=== PATIENT | female | born 1990 | race Two or more races ===

== ENCOUNTER 2023-01-19 06:49 | Outpatient (REF) | payer OTHER, SELFPAY ==
[2023-01-19 09:21] LABS: MANUAL DIFF FLAG NO
[2023-01-19 09:49] LABS: Basophils Percent Auto 0.4 % (0-2); Eosinophils Absolute Auto 0.1 X10*3/uL (0.0-0.4); Eosinophils Percent Auto 1.2 % (0-4); Hematocrit 39.6 % (37.0-47.0); Hemoglobin 13.1 g/dl (12.0-16.0); Imm Gran Abs Auto 0.01 X10*3/uL (0.00-0.03); Imm Gran Pct Auto 0.2 % (0.0-0.4); Lymphocytes Percent Auto 37.5 % (20-40); Mean Corpuscular HGB Conc 33.1 g/dl (31.0-35.0); Mean Corpuscular Hemoglobin 32.3 pg (27.0-33.0); Mean Corpuscular Volume 97.5 fL (80.0-98.0); Mean Platelet Volume 10.6 fL (9.4-12.3); Monocytes Absolute Auto 0.5 X10*3/uL (0.1-1.2); Monocytes Percent Auto 10.2 % (2-11); Neutrophils Absolute Auto 2.6 x10*3/uL (2.0-8.3); Neutrophils Percent Auto 50.5 % (45-73); Platelet Count 207 X10*3/uL (160-400); Red Blood Count 4.06 X10*6/uL (4.20-5.50); Red Cell Distribution Width 11.9 % (11.0-16.0); White Blood Count 5.2 X10*3/uL (4.8-10.8)
[2023-01-19 10:11] LABS: Estimated Average Glucose 74 mg/dL; Hemoglobin A1c % 4.2 %
[2023-01-19 10:46] LABS: Alanine Aminotransferase 9 U/L (0-31); Albumin Level 4.3 g/dL (3.5-5.0); Alkaline Phosphatase 50 U/L (39-117); Anion Gap 11 (12-20); Aspartate Amino Transferase 14 U/L (5-31); Bilirubin Total 0.9 mg/dL (0.0-1.0); Blood Urea Nitrogen 10 mg/dL (9-16); Calcium 9.6 mg/dL (8.4-10.2); Carbon Dioxide 26 mmol/L (22-29); Chloride 108 mmol/L (96-108); Estimated Glomerular Filt Rate > 60; Glucose Random 107 mg/dL (60-115); Iron 81 mcg/dL (30-160); Magnesium 2.1 mg/dL (1.6-2.6); Percent Iron Saturation 24 % (15-50); Sodium 141 mmol/L (135-145); Total Iron Binding Capacity 332 mcg/dL (228-428); Total Protein 7.5 g/dL (6.5-8.0); Unsaturated Iron Binding 251 ug/dL
[2023-01-19 10:54] LABS: Ferritin 40 ng/mL (10-122); Free T4 (Free Thyroxine) 0.88 ng/dL (0.71-1.85); Thyroid Stimulating Hormone 1.25 uIU/mL (0.32-4.0)
== END 2023-01-19 06:50 | disposition home or self-care (01) ==
LOC: HO.LAB 06:49
PROVIDERS: Visit Provider Internal Medicine
DX: I10 Essential (primary) hypertension (principal); E83.42 Hypomagnesemia; D50.9 Iron deficiency anemia, unspecified; E03.9 Hypothyroidism, unspecified; R73.09 Other abnormal glucose
CPT/HCPCS: 36415; 80053; 82728; 83036; 83540; 83735; 84439; 84443; 85025

== ENCOUNTER 2023-05-11 13:33 | Outpatient (REF) | payer OTHER, SELFPAY ==
--- NOTE | ~2023-05-11 | XR_ITS ---
EXAMINATION: XR CHEST CLINICAL INFORMATION: Cough. Question hemoptysis COMPARISON: None available. TECHNIQUE: 2 views of the chest were obtained. FINDINGS: There is a faint region of increased density overlying the inferior scapula in the peripheral left lung which may be related to atelectasis or pneumonitis and appears somewhat more prominent than would be expected for overlying structures. Heart normal size. No evidence of pulmonary edema. No pneumothorax or pleural effusion. XR/XR chest 2V IMPRESSION: Small focus of density within the left peripheral upper lung.
== END 2023-05-11 13:34 | disposition home or self-care (01) ==
LOC: HO.XRAY 13:33
PROVIDERS: PCP Internal Medicine; Visit Provider Radiology Diagnostic Radiology
DX: R05.9 Cough, unspecified (principal); R04.2 Hemoptysis
CPT/HCPCS: 71046

== ENCOUNTER 2023-05-19 13:00 | Outpatient (REF) | payer OTHER, SELFPAY ==
--- NOTE | ~2023-05-19 | XR_ITS ---
EXAMINATION: XR CHEST CLINICAL INFORMATION: Shortness of breath COMPARISON: Previous chest x-ray 05/11/2023 TECHNIQUE: 2 views of the chest were obtained. FINDINGS: The cardiac and mediastinal contours are normal. The lungs are clear. No pleural effusion or pneumothorax. Normal bony structures. XR/XR chest 2V IMPRESSION: Unremarkable examination.
== END 2023-05-19 13:01 | disposition home or self-care (01) ==
LOC: HO.XRAY 13:00
PROVIDERS: PCP Internal Medicine; Visit Provider Physician Assistant Medical
DX: R06.02 Shortness of breath (principal)
CPT/HCPCS: 71046

== ENCOUNTER 2024-05-25 07:50 | Outpatient (REF) | payer OTHER, SELFPAY ==
--- NOTE | ~2024-05-25 | CT_ITS ---
EXAMINATION: CT ABDOMEN AND PELVIS WITH CONTRAST CLINICAL INFORMATION: Constipation, abdominal pain, diarrhea. COMPARISON: No prior. TECHNIQUE: Multidetector volumetric images were obtained from the superior aspect of the liver through the pubic symphysis following administration 85 mL of Omnipaque 350 intravenous contrast. Sagittal and coronal reformatted images were obtained on the technologist's workstation. Oral contrast: No This CT examination was performed using dose optimization techniques as appropriate, variously including the following: *Automated exposure control *Adjustment of mA and/or kV according to patient size (this includes techniques or standardized protocols for targeted exams where dose is matched to indication/reason for exam; i.e. extremities or head) *Use of iterative reconstruction technique DLP: 283. mGy-cm FINDINGS: LUNG BASES: Lung bases are clear. The heart size is normal. Normal GE junction. LIVER, GALLBLADDER, AND BILIARY TREE: -Mild diffuse fatty infiltration of the liver. There is a simple hepatic cyst in segment 3 measuring 9 mm. No additional liver abnormality. Gallbladder is surgically absent. Minimal intra and extrahepatic biliary dilatation is consistent with reservoir effect from post cholecystectomy state. No definite obstructing abnormality. PANCREAS: Normal in attenuation and appearance. Duct is normal in size. No focal abnormality. SPLEEN: Normal. ADRENAL GLANDS: Normal. KIDNEYS AND URETERS: - Left kidney demonstrates 3 mm nonobstructing calculus inferior pole, with abutting 2 mm nonobstructing calculus slightly more superiorly, and tiny 3 mm calculus in the superior pole, also nonobstructing. There is a subcentimeter cyst in the posterior renal cortex. -Right kidney demonstrates a punctate 2 mm nonobstructing calculus in the midpole, and in one of the lower pole calyces. Right kidney otherwise is normal in appearance with no hydronephrosis or other focal abnormality. -No suspicious renal abnormalities. Ureters are nondilated. No abnormal urothelial enhancement. BLADDER: Normal in appearance. No calculi, wall thickening, or mass. GASTROINTESTINAL TRACT: -There is moderate fecal retention within the descending colon, sigmoid, and rectum. Right colon is normal in appearance as is the transverse. -No regional wall thickening or colonic inflammation identified. No evidence of mass. -Normal appendix is visualized. -Small bowel is normal in caliber, course, and fold pattern. Normal terminal ileum. -The GE junction, stomach, and duodenum demonstrate no abnormality. ABDOMINAL WALL: -Normal. No hernia or abnormal lymph nodes. LYMPH NODES: Normal. No lymphadenopathy. PERITONEUM: No free air or ascites. RETROPERITONEUM: Normal appearance. VASCULAR: Normal in appearance. No venous thrombosis. PELVIC VISCERA: -There is a corpus luteal cyst in the right ovary. Ovaries are otherwise normal. There are no adnexal abnormalities. The uterus demonstrates prominent pelvic veins, which appear to be arising from the left gonadal vein, and to a lesser degree the hypogastric veins. This is an entirely nonspecific appearance and if vague pelvic pain exists, could be related to pelvic congestion syndrome. It is otherwise of likely no clinical significance. OSSEOUS STRUCTURES: -No suspicious lytic or blastic bone abnormalities. -Normal hip joints, normal SI joints, and normal-appearing imaged spine with preserved disc spaces. No significant disc herniation identified. CT/CT abdomen pelvis w IV con IMPRESSION: 1. No acute findings in the abdomen or pelvis. 2. Nonobstructing tiny bilateral renal calculi. No hydronephrosis. Normal urinary bladder. 3. Mild fatty infiltration of the liver. No suspicious liver abnormality. 4. Cholecystectomy. 5. No abnormality of the stomach, small bowel, or colon to explain diarrhea or constipation. There is moderate stool retention in the left hemicolon. 6. Additional ancillary findings as discussed in the body of the report. Electronically signed by: Tarik Strauss MD 05/26/2024 08:47 AM EDT
[2024-05-25] MEDS: iohexoL 350 MG/ML 100 ML INFUS..BTL IV (10:26)
== END 2024-05-25 07:51 | disposition home or self-care (01) ==
LOC: HO.CT 07:50
PROVIDERS: PCP Internal Medicine; Visit Provider Internal Medicine
DX: K59.00 Constipation, unspecified (principal)
CPT/HCPCS: 74177; Q9967

== ENCOUNTER → 2024-05-25 08:24 | Outpatient (BNV) | payer OTHER, SELFPAY | PROVIDERS: PCP Internal Medicine; Visit Provider Radiology Diagnostic Radiology | DX: R10.9 Unspecified abdominal pain (principal); R19.7 Diarrhea, unspecified; K59.09 Other constipation | CPT/HCPCS: 74177 ==

== ENCOUNTER 2025-04-25 09:17 | Outpatient (REF) | payer OTHER, SELFPAY ==
[2025-04-25 10:17] LABS: MANUAL DIFF FLAG NO
[2025-04-25 10:55] LABS: Hematocrit 37.6 % (37.0-47.0); Hemoglobin 12.5 g/dl (12.0-16.0); Imm Gran Abs Auto 0.01 X10*3/uL (0.00-0.03); Imm Gran Pct Auto 0.2 % (0.0-0.4); Lymphocytes Absolute Auto 1.9 X10*3/uL (1.2-4.9); Mean Corpuscular HGB Conc 33.2 g/dl (31.0-35.0); Mean Corpuscular Hemoglobin 31.6 pg (27.0-33.0); Mean Corpuscular Volume 95.2 fL (80.0-98.0); NRBC Abs Auto 0.000 X10*3/uL (0.0-0.012); NRBC Pct Auto 0.0 /100WBC (0.0-0.2); Platelet Count 230 X10*3/uL (160-400); Red Blood Count 3.95 X10*6/uL (4.20-5.50); White Blood Count 4.6 X10*3/uL (4.8-10.8)
[2025-04-25 12:15] LABS: Calcium 9.5 mg/dL (8.4-10.2); Magnesium 1.9 mg/dL (1.6-2.6)
[2025-04-25 12:20] LABS: Ferritin 61 ng/mL (10-122)
[2025-04-26 04:08] LABS: Immunoglobulin A 192 mg/dL (47-310)
[2025-04-29 05:13] LABS: VITAMIN D (1,25 OH) D3 62 pg/mL; Vit D (1,25-Dihydroxy) Total 62 pg/mL (18-72); Vitamin D (1,25 OH) D2 <8 pg/mL
== END 2025-04-25 09:18 | disposition home or self-care (01) ==
LOC: HO.LAB 09:17
PROVIDERS: PCP Internal Medicine; Visit Provider Internal Medicine
DX: K58.1 Irritable bowel syndrome with constipation (principal); R19.4 Change in bowel habit
CPT/HCPCS: 36415; 82310; 82652; 82728; 82784; 83735; 84443; 85025; 86364

== ENCOUNTER 2025-04-25 09:17 | Outpatient (AMB) | payer OTHER, SELFPAY ==
--- NOTE | 2025-04-25 09:22 | MHC.OFFVIS ---
Vital Signs 04/25/25 09:23 Height 5 ft 6 in Weight 134 lb 7.712 oz BMI 21.7 BP 109/58 L Blood Pressure Location Lt brachial Position Sitting Pulse 81 Intake Visit Reasons: Abdominal pain for years and constipation Intake Note: Dinah presents in the office as a new patient for abdominal pains and constipation. CC: Lower abdominal pains and right side as well. constipation been going on for 10+ years and getting worse! She had had bleeding but not constant when she has a BM. Allergies No Known Allergies Allergy (Verified 04/25/25 09:23) HPI Comments Details: 35 y.o F with PMH of IBS x 10-15 years ago who is here to establish care. Reports sx are mostly bloating and abd discomfort RUQ and lower abd pain pressure that occur daily last until she has a BM. Has to take OTC laxatives and saline enemas. Has 3 BMs per week only WITH a laxative aid. Stools are stringy and has to strain. Sometimes had to digitalize. Splints. Uses a squatty potty. Takes fiber and probiotics. No fam hx IBD or CRC. Non smoker, occ etOH. Last egd/colo was 15 years ago at the time of her initial eval for IBS. [facility] Surgical History (Updated 04/25/25 @ 09:24 by VALERIE Rosa) Hx of colonoscopy History of esophagogastroduodenoscopy (EGD) Review of Systems Const All systems reviewed & are unremarkable except as noted in HPI and below Physical Exam Exam Exam: No apparent distress Nonicteric Abdomen soft, nondistended Alert and oriented x3, normal gait Vital Signs: Last Vital Signs Pulse 81 04/25/25 09:23 BP 109/58 L 04/25/25 09:23 BMI result Body Mass Index 21.7 Assessment & Plan Assessment & Plan (1) Irritable bowel syndrome with constipation: Code(s): K58.1 - Irritable bowel syndrome with constipation Category: Medical (2) Change in bowel habit: Code(s): R19.4 - Change in bowel habit Category: Medical Plan S/sx consistent with IBS-C but has poor control of global sx with OTC therapy and also minimal response to constipation itself. Plan: - Linzess 145 mcg once daily - Pt advised to call our office for excessive diarrhea to adjust dose - Cont fiber supplementation - goal 20-25g fiber in diet per day - Good hydration - Mag supplementation - Labs to r/o other etiology such as hypothyroid, hypercalcemia, celiac etc - Pt also reports low energy and fatigue for which cbc iron studies and vit d ordered Follow up 3 months Orders: Orders TSH reflex Free T4 Today R19.4 - Change in bowel habit Calcium Today R19.4 - Change in bowel habit Ferritin Today R19.4 - Change in bowel habit Vitamin D 1,25 dihydroxy Today R19.4 - Change in bowel habit Transglutaminase IgA Today R19.4 - Change in bowel habit Immunoglobulin A Today R19.4 - Change in bowel habit Magnesium Today R19.4 - Change in bowel habit Complete Blood Count Auto Diff Today R19.4 - Change in bowel habit Medications: New linaclotide (Linzess) 145 mcg PO DAILY 90 caps 0RF 90 days magnesium oxide 500 mg PO DAILY 90 caps 0RF 90 days Coding Level of Care Code New Pt Level 4 (85387) Diagnoses Irritable bowel syndrome with constipation K58.1 Change in bowel habit R19.4
[2025-04-25 09:23] VITALS: BP 109/58; PULSE 81; BMI 21.7
== END 2025-04-25 09:52 | disposition home or self-care (01) ==
LOC: HO.HGI 09:18
PROVIDERS: PCP Internal Medicine; Visit Provider Internal Medicine
DX: K58.1 Irritable bowel syndrome with constipation (principal); R19.4 Change in bowel habit
CPT/HCPCS: 99204

== ENCOUNTER 2025-05-15 10:04 | Outpatient (REF) | payer OTHER, SELFPAY ==
--- NOTE | ~2025-05-15 | XR_ITS ---
EXAMINATION: XR CHEST CLINICAL INFORMATION: R05.9 - Cough, unspecified COMPARISON: May 19, 2023. TECHNIQUE: PA and lateral views FINDINGS: Hyperinflated lungs. No consolidation, pleural effusion or pneumothorax. Cardiomediastinal silhouette size is normal. Mild multilevel thoracic spondylosis. Mild S-shaped curvature of the mid thoracic spine. Vascular clips right upper quadrant abdomen likely prior cholecystectomy. XR/XR chest 2V IMPRESSION: Hyperinflated lungs. No acute airspace disease. Mild scoliosis, mid thoracic spine. Electronically signed by: Jeison Pina MD 05/15/2025 10:51 AM EDT
[2025-05-15 14:39] LABS: Chlamydia pneumoniae PCR Not Detected (Not Detect.); Coronavirus 229E PCR Not Detected (Not Detect.); Coronavirus HKU1 PCR Not Detected (Not Detect.); Coronavirus NL63 PCR Not Detected (Not Detect.); Coronavirus OC43 PCR Not Detected (Not Detect.); RSV PCR Not Detected (Not Detect.); Rhino/Enterovirus PCR Detected (Not Detect.)
[2025-05-15 15:22] LABS: Influenza A H1 PCR Not Detected (Not Detect.); Influenza A H1-2009 PCR Not Detected (Not Detect.); Influenza A H3 PCR Not Detected (Not Detect.); SARS-CoV-2 PCR Not Detected (Not Detect.)
== END 2025-05-15 10:05 | disposition home or self-care (01) ==
LOC: HO.HMGCX 10:04
PROVIDERS: PCP Internal Medicine; Visit Provider Physician Assistant Medical
DX: R05.1 Acute cough (principal); R07.89 Other chest pain; R06.02 Shortness of breath; R51.9 Headache, unspecified
CPT/HCPCS: 71046; 87633

== ENCOUNTER 2025-05-15 10:04 | Outpatient (AMB) | payer OTHER, SELFPAY ==
--- NOTE | 2025-05-15 10:06 | AM.OFFWIN_ITS ---
Intake Vital Signs 05/15/25 10:08 Height 5 ft 6 in Weight 136 lb BMI 21.9 BP 106/80 Blood Pressure Location Rt brachial Position Sitting Pulse 90 Temp 98.5 F Pulse Oximetry (%) 97 Intake Visit Reasons: EP Cough, chest tightness, headaches Intake Note: Dry Cough, ear, jaw and body pain as well as chest tightness and headache for the last 5 days. Allergies No Known Allergies Allergy (Verified 05/15/25 10:18) Do you need a note to return to daycare/school/sports/work: Yes HPI HPI Comments History of Present Illness Details History - The patient is a 35-year-old female pr esenting with a cough. - The illness began five days ago with s ymptoms including a dry cough, chest tightness, shortness of breath, and headache. - She has been having pain in the low ba ck and chest when she coughs. - The patient reports a fever reaching 1 01?F last night and a sore throat that was most severe on and Wednesday. - She has been using [id number] co ld and flu medications without significant improvement. - There is no history of asthma or recen t exposure to sick contacts. 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 - She denies abd pain, n/v/d, recent tra eusebio or smoking. Physical Exam General: Cooperative, healthy appearing, comfortable and no acute distress Orientation/consciousness: Patient oriented x3 Limitations: No limitations Head: Normal to inspection Ears: Hearing grossly normal bilaterally, external ears normal and TM's normal bilaterally Nose: Normal external nose present, normal nares present, and no nasal discharge present. Face and sinus: Sinuses nontender to palpation. Mouth: Normal oral and palatal mucosa present and moist mucous membranes noted. Throat: Tonsils normal. Uvula is midline. Posterior oropharynx with erythema and no exudates. Eyes: Appearance normal, both eyes and all related structures Neck: Normal visual inspection, full ROM. No lymphadenopathy noted. Respiratory: Clear to auscultation bilaterally. Normal respiratory effort, able to speak in complete sentences. No respiratory distress, not tachypneic, no tripod positioning and no use of accessory muscles. Breath sounds slightly diminished. Cardiovascular: Regular rate and rhythm. Normal S1 and S2. No m/r/g noted. Skin: No rashes or lesions noted Patient was informed and verbally consented to the use of an ambient scribe for clinic note documentation during this visit [facility] Surgical History (Updated 04/25/25 @ 09:24 by VALERIE Rosa) Hx of colonoscopy History of esophagogastroduodenoscopy (EGD) Review of Systems Const All systems reviewed & are unremarkable except as noted in HPI and below Physical Exam Vital Signs: Last Vital Signs Temp 98.5 F 05/15/25 10:08 Pulse 90 05/15/25 10:08 BP 106/80 05/15/25 10:08 Pulse Ox 97 05/15/25 10:08 BMI result Body Mass Index 21.9 Results Reviewed Results Reviewed: will review the CXR in the office Assessment & Plan Assessment & Plan (1) Cough: Code(s): R05.9 - Cough, unspecified Qualifiers: Cough type: acute Qualified Code(s): R05.1 - Acute cough Plan Most likely URI vs flu vs covid vs viral illness vs pneumonia plan - Plan includes symptomatic treatment with prescription medications such as an inhaler, prednisone, and cough medicine. - A respiratory panel will be conducted to test for flu, COVID-19, RSV, and other respiratory illnesses. - A chest x-ray is planned to confirm the presence of pneumonia. - If pneumonia is confirmed, treatment will include two antibiotics. - will call with the results - albuterol, tessalon perles, and prednisone for cough - will give her a work note for today - follow up with PCP Orders: Orders Resp Pathogen Panel - [employer] [facility] [facility] [place] Today J06.9 - Acute upper respiratory infection, unspecified XR chest 2V Today R05.9 - Cough, unspecified Medications: New prednisone 40 mg (2 x 20 mg) PO DAILY 10 tabs 0RF 5 days benzonatate 100 mg PO bid-tid PRN 21 caps 0RF Cough 7 days albuterol sulfate 90 mcg/actuation 2 puffs inhalation Q6H PRN 8.5 grams 0RF shortness of breath or wheezing or cough Coding Level of Care Code Est Pt Level 4 (96868) Diagnoses Acute cough R05.1 Cough type: acute
[2025-05-15 10:08] VITALS: BP 106/80; PULSE 90; TEMP 36.9; O2SAT 97; BMI 21.9
== END 2025-05-15 12:48 | disposition home or self-care (01) ==
PROVIDERS: PCP Internal Medicine; Visit Provider Physician Assistant Medical
DX: R05.1 Acute cough (principal)

== ENCOUNTER → 2025-05-15 10:39 | Outpatient (BNV) | payer OTHER, SELFPAY | PROVIDERS: PCP Internal Medicine; Visit Provider Radiology Diagnostic Radiology | DX: J98.4 Other disorders of lung (principal); M41.84 Other forms of scoliosis, thoracic region | CPT/HCPCS: 71046 ==

== ENCOUNTER 2025-06-13 12:20 | Outpatient (REF) | payer OTHER, SELFPAY ==
[2025-06-13 14:08] LABS: Appearance Urine Clear; Glucose Urine UA Negative (Negative); PH 5.5 (5.0-9.0); Specific Gravity - Urine 1.025 (1.005-1.025); UMIC TRIGGER UA YES
[2025-06-13 15:50] LABS: Alanine Aminotransferase 21 U/L (0-31); Albumin Level 5.0 g/dL (3.5-5.0); Alkaline Phosphatase 64 U/L (39-117); Anion Gap 11 (12-20); Aspartate Amino Transferase 38 U/L (5-31); Blood Urea Nitrogen 15 mg/dL (9-16); Calcium 9.7 mg/dL (8.4-10.2); Carbon Dioxide 24 mmol/L (22-29); Chloride 108 mmol/L (96-108); Estimated Glomerular Filt Rate > 60; Potassium 4.3 mmol/L (3.3-5.1); Sodium 139 mmol/L (135-145); Total Protein 8.1 g/dL (6.5-8.0)
== END 2025-06-13 12:21 | disposition home or self-care (01) ==
LOC: HO.LAB 12:20
PROVIDERS: PCP Internal Medicine; Visit Provider Internal Medicine
DX: K58.1 Irritable bowel syndrome with constipation (principal); R10.31 Right lower quadrant pain; M54.9 Dorsalgia, unspecified
CPT/HCPCS: 36415; 80053; 81001; 81003

== ENCOUNTER 2025-06-13 12:20 | Outpatient (AMB) | payer OTHER, SELFPAY ==
--- NOTE | 2025-06-13 12:28 | A.OFFVIS_ITS ---
Vital Signs 06/13/25 12:31 Height 5 ft 6 in Weight 136 lb BMI 21.9 BP 106/55 L Blood Pressure Location Lt brachial Position Sitting Pulse 89 Intake Visit Reasons: f/u discuss abdominal pains Intake Note: Dinah presents in the office as a follow up to discuss. CC: Linzess has not done anything for her. She has not seen any change at all - she gets a weird Lower right back pains. 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 Reports sx are mostly bloating and abd discomfort RUQ and lower abd pain pressure that occur daily last until she has a BM. Has to take OTC laxatives and saline enemas. Has 3 BMs per week only WITH a laxative aid. Stools are stringy and has to strain. Sometimes had to digitalize. Splints. Uses a squatty potty. Takes fiber and probiotics. No fam hx IBD or CRC. Non smoker, occ etOH. Last egd/colo was 15 years ago at the time of her initial eval for IBS. 06/13/25: Here for recent onset of R lower back pain x days. Reports not assoc with any fevers, chills, change in bowel or bladder habits. Pain is not positional. Not related to food intake. No tenderness either. Cont to have persistent constipation. Was started on Linzess which does not work as well for her. Last BM was 3 days ago after she took an enema. Will increase dose. [facility] Surgical History Hx of colonoscopy History of esophagogastroduodenoscopy (EGD) Review of Systems Const All systems reviewed & are unremarkable except as noted in HPI and below Physical Exam Exam Exam: Young female NAD abd soft nontender nondistended No flank or CVA tenderness renal punch neg, SLR neg No [place] Vital Signs: Last Vital Signs Pulse 89 06/13/25 12:31 BP 106/55 L 06/13/25 12:31 BMI result Body Mass Index 21.9 Assessment & Plan Assessment & Plan (1) Back pain: Code(s): M54.9 - Dorsalgia, unspecified (2) Irritable bowel syndrome with constipation: Code(s): K58.1 - Irritable bowel syndrome with constipation Category: Medical Plan 1. Ddx for r lower back pain includes UTI, pyelo, MSK pain, sciatica etc. Plan: - Check CMP and UA - low threshold for CT if sx progress 2. IBS-C limited response to linzess. Will double up the dose. Plan: - Linzess 290 mcg once daily - If develops diarrhea with this dose, can titrate to every other day Follow up 2 months Medications: Changed From linaclotide (Linzess) 145 mcg PO DAILY 90 days 90 caps 0RF To linaclotide (Linzess) 290 mcg (2 x 145 mcg) PO DAILY 90 days 180 caps 0RF From linaclotide (Linzess) 290 mcg (2 x 145 mcg) PO DAILY 90 days 180 caps 0RF To linaclotide 290 mcg PO DAILY 90 caps 0RF 90 days Coding Level of Care Code Est Pt Level 4 (40981) Diagnoses Back pain M54.9 Irritable bowel syndrome with constipation K58.1
[2025-06-13 12:31] VITALS: BP 106/55; PULSE 89; BMI 21.9
== END 2025-06-13 13:59 | disposition home or self-care (01) ==
LOC: HO.HGI 12:21
PROVIDERS: PCP Internal Medicine; Visit Provider Internal Medicine
DX: M54.9 Dorsalgia, unspecified (principal); K58.1 Irritable bowel syndrome with constipation
CPT/HCPCS: 99214